=== PATIENT | female | born 1985 | race Caucasian/White ===

== ENCOUNTER 2016-07-12 11:18 | Outpatient (CLI) | payer OTHER ==
[~2016-07-12] VITALS: Ht 160 cm; Wt 78.0 kg
[2016-07-12 13:07] VITALS: BP 107/67
[2016-07-12] MEDS ORDERED: TYLENOL EXTRA500 MG PO (13:17)
[2016-07-12] MEDS ORDERED: PRENATAL TABLE1 EAC3 PO (13:17)
[2016-07-12 14:11] VITALS: BP 110/64
[2016-07-12 14:55] VITALS: BP 102/66
[2016-07-12 16:00] VITALS: BP 109/70
[2016-07-12 16:54] VITALS: BP 101/68
== END 2016-07-12 17:00 | disposition home or self-care (01) ==
LOC: LDRP-OP 11:18 → EME 11:18 → 2WEST 12:58 → EDSTATUS 12:58 → 2WEST 17:00
DX: Z03.79 Encounter for other suspected maternal and fetal conditions ruled out (principal); V49.9XXS Car occupant (driver) (passenger) injured in unspecified traffic accident, sequela; Z3A.36 36 weeks gestation of pregnancy
CPT/HCPCS: 59025; 99281; 99283; G0378

== ENCOUNTER 2016-08-03 12:54 | Inpatient (IN) | payer OTHER ==
[2016-08-03] VITALS (11 sets, daily range): BP systolic 87–118; BP diastolic 56–75
[~2016-08-03] VITALS: Ht 160 cm; Wt 79.0 kg
[~2016-08-03 12:54] MED LIST: PRENATAL TABLE1 EAC3 PO; TYLENOL EXTRA500 MG PO
[2016-08-03 13:57] LABS: EOSINOPHIL (%) 0.7 % (0-5); EOSINOPHIL COUNT 0.1 K/uL (0-0.3); HEMATOCRIT 34.1 % (36.0-46.0); IMMATURE GRANULOCYTE (%) 0.7 % (0.0-0.7); IMMATURE GRANULOCYTE COUNT 0.1 K/uL; INSTRUMENT ABS NEUTROPHIL CT 8.1 K/uL; MCH 29.8 PG (29.0-34.0); MCHC 33.7 G/DL (30.0-36.0); MCV 88.3 FL (83-99); MEAN PLAT.VOLUME 9.2 uM^3 (9.5-12.4); MONOCYTE (%) 4.6 % (3-12); MONOCYTE COUNT 0.5 K/uL (0-0.8); NEUTROPHIL (%) 75.5 % (45-76); NEUTROPHIL COUNT 8.1 K/uL (1.8-6.4); PLATELET COUNT 226 K/uL (156-360); RBC DIS.WIDTH-CV 14.5 % (11.8-14.6); RBC DIS.WIDTH-SD 45.8 % (39-53); RED BLOOD COUNT 3.86 M/uL (3.80-5.20); WHITE BLOOD COUNT 10.7 K/uL (4.1-10.2)
[2016-08-03] MEDS ORDERED: ZANTAC75 M1 PO (14:22)
[2016-08-04] VITALS (25 sets, daily range): BP systolic 59–122; BP diastolic 42–71
[2016-08-04 12:47] LABS: BASE EXCESS -4.3 mEq/L (-3 to +3); CARBOXY HGB 0 % (0-5); PCO2 56 mm Hg (35-45); PO2 < 28 mm Hg (80-100); pH 7.24 (7.35-7.45)
[2016-08-04 12:48] LABS: SITE VENOUS CORD SAMP.
[2016-08-05] VITALS (7 sets, daily range): BP systolic 93–129; BP diastolic 52–84
[2016-08-05 07:34] LABS: EOSINOPHIL (%) 0.5 % (0-5); EOSINOPHIL COUNT 0.1 K/uL (0-0.3); HEMATOCRIT 28.5 % (36.0-46.0); IMMATURE GRANULOCYTE (%) 0.6 % (0.0-0.7); IMMATURE GRANULOCYTE COUNT 0.1 K/uL; INSTRUMENT ABS NEUTROPHIL CT 10.3 K/uL; MCH 29.4 PG (29.0-34.0); MCHC 32.6 G/DL (30.0-36.0); MCV 90.2 FL (83-99); MEAN PLAT.VOLUME 9.4 uM^3 (9.5-12.4); MONOCYTE (%) 5.3 % (3-12); MONOCYTE COUNT 0.7 K/uL (0-0.8); NEUTROPHIL (%) 78.4 % (45-76); NEUTROPHIL COUNT 10.3 K/uL (1.8-6.4); PLATELET COUNT 167 K/uL (156-360); RBC DIS.WIDTH-CV 14.4 % (11.8-14.6); RBC DIS.WIDTH-SD 47.2 % (39-53); RED BLOOD COUNT 3.16 M/uL (3.80-5.20); WHITE BLOOD COUNT 13.1 K/uL (4.1-10.2)
[2016-08-06 02:57] VITALS: BP 85/48
[2016-08-06 07:43] VITALS: BP 108/67
[2016-08-06] MEDS ORDERED: IBUPROFEN800 MG PO (09:39)
[2016-08-06] MEDS ORDERED: CHROMAGEN,1 CAPSULE PO (09:39)
[2016-08-06] MEDS ORDERED: OXAYDO5 MG PO (09:46)
[2016-08-06 11:35] VITALS: BP 107/68
[2016-08-06 15:08] VITALS: BP 106/58
[2016-08-06 23:00] VITALS: BP 113/75
[2016-08-07 07:34] VITALS: BP 120/74
== END 2016-08-07 12:38 | disposition home or self-care (01) | DRG 765 ==
LOC: LDRP-OP → 2WEST 12:55 → LDRP-OP 08-04 07:26 → 2WEST 08-04 12:30 → LDRP-OP 09-04 16:45
PROVIDERS: Obstetrics & Gynecology
PROC: 3E097GC Introduction of Other Therapeutic Substance into Nose, Via Natural or Artificial Opening (ICD-10-PCS; principal; 2016-08-03)
PROC: 3E0S3CZ (ICD-10-PCS; 2016-08-04)
PROC: 10D00Z1 Extraction of Products of Conception, Low, Open Approach (ICD-10-PCS; 2016-08-04)
PROC: 00HU33Z Insertion of Infusion Device into Spinal Canal, Percutaneous Approach (ICD-10-PCS; 2016-08-04)
DX: O76 Abnormality in fetal heart rate and rhythm complicating labor and delivery (principal); O75.81 Maternal exhaustion complicating labor and delivery; O32.4XX0 Maternal care for high head at term, not applicable or unspecified; O99.02 Anemia complicating childbirth; D62 Acute posthemorrhagic anemia; Z3A.39 39 weeks gestation of pregnancy; Z37.0 Single live birth; Q89.01 Asplenia (congenital)
CPT/HCPCS: 36600; 82803; 85025; 86900; 86901; C1755; G0378; J0595; J0690; J1100; J1885; J2274; J2405; J7120; Q0169

== ENCOUNTER → 2016-08-10 | Outpatient (CLI) | payer OTHER ==
[~2016-08-10] MED LIST changes: +CHROMAGEN,1 CAPSULE PO; +IBUPROFEN800 MG PO; +OXAYDO5 MG PO; +ZANTAC75 M1 PO
== END | disposition home or self-care (01) ==
LOC: LAC 11:22
DX: O92.13 Cracked nipple associated with lactation (principal); O92.79 Other disorders of lactation
CPT/HCPCS: G0463